=== PATIENT | female | born 1930 | race Caucasian/White ===

== ENCOUNTER 2017-02-19 05:21 | Emergency (ER) | payer MEDICARE ==
[2017-02-19 05:25] VITALS: BP 188/55; PULSE 60; RESP 18; TEMP 98.7; O2SAT 100
--- NOTE | 2017-02-19 05:45 | PD ---
HPI Chief Complaint: Fall Time Seen by Provider: 05:36 Travel History International Travel<30 days: No Contact w/Intl Traveler<30days: No Traveled to known affect area: No History of Present Illness HPI The patient is an 86-year-old female that fell tonight. It is unknown whether she lost consciousness. She did hit her right forehead and she complains of cervical, thoracic and lumbar spine pain. She also states she has pain behind both knees. At times she doesn't remember whether she fell or not. She came from [facility]. She has a history of dementia. Fall was not witnessed by [facility] staff. PFSH Past Medical History ?: Not Social History Tobacco Use: No Allergies-Medications (Allergen,Severity, Reaction): Coded Allergies: Ativan (Verified Allergy, Unknown, 02/19/17) CRESTOR (Verified Allergy, Unknown, 02/19/17) Citalopram (Verified Allergy, Unknown, 02/19/17) Codeine (Verified Allergy, Unknown, 02/19/17) Demerol (Verified Allergy, Unknown, 02/19/17) Duloxetine HCl (Verified Allergy, Unknown, 02/19/17) Estrogens (Verified Allergy, Unknown, 02/19/17) Lipitor (Verified Allergy, Unknown, 02/19/17) Macrobid (Verified Allergy, Unknown, 02/19/17) Oxycodone (Verified Allergy, Unknown, 02/19/17) Propoxyphene (Verified Allergy, Unknown, 02/19/17) Remeron Maral-Tab (Verified Allergy, Unknown, 02/19/17) Sertraline (Verified Allergy, Unknown, 02/19/17) Reported Meds & Prescriptions Reported Meds & Active Scripts Active Reported Synthroid (Levothyroxine Sodium) 88 Mcg Tab 88 Mcg PO DAILY Risperidone 0.5 Mg Tab 0.5 Mg PO DAILY Risperidone 0.25 Mg Tab 0.25 Mg PO HS Omeprazole 20 Mg Tab 20 Mg PO DAILY Losartan (Losartan Potassium) 25 Mg Tab 25 Mg PO DAILY Furosemide 20 Mg Tab 20 Mg PO DAILY Divalproex DR (Divalproex Sodium) 125 Mg Capdr 125 Mg PO DAILY Aspirin 81 (Aspirin) 81 Mg Tabdr 81 Mg PO DAILY Liquitears Opth (Polyvinyl Alcohol) 1.4% Soln Amlodipine (Amlodipine Besylate) 2.5 Mg Tab 2.5 Mg PO DAILY Review of Systems Except as stated in HPI: all other systems reviewed are Neg Physical Exam Narrative GENERAL: The patient is alert but has poor recollection of the event. She appears in slight apparent distress with her C-spine, T-spine and LS-spine pain. Her vital signs show blood pressure 188/55 but are otherwise normal. SKIN: Focused skin assessment warm/dry. HEAD: The right forehead shows a recent contusion without any associated forming of the skull.. Normocephalic. EYES: Pupils equal and round. No scleral icterus. No injection or drainage. ENT: No nasal bleeding or discharge. Mucous membranes pink and moist. NECK: Trachea midline. No JVD. There is diffuse tenderness over the lower neck without any posterior spinous process deformity. Most of the tenderness is over the trapezii and not over the posterior spinous processes. CARDIOVASCULAR: Regular rate and rhythm. No murmur appreciated. RESPIRATORY: No accessory muscle use. Clear to auscultation. Breath sounds equal bilaterally. GASTROINTESTINAL: Abdomen soft, non-tender, nondistended. Hepatic and splenic margins not palpable. MUSCULOSKELETAL: No obvious deformities. No clubbing. No cyanosis. No edema. There is tenderness without deformity to the left of the thoracic spine. No flail is noted. There is tenderness diffusely at the lumbosacral area bilaterally. No deformities noted in this area. NEUROLOGICAL: Awake and alert. No obvious cranial nerve deficits. Motor grossly within normal limits. Normal speech. PSYCHIATRIC: Appropriate mood and affect; insight and judgment normal. Data Data Last Documented VS Vital Signs Date Time Temp Pulse Resp B/P Pulse Ox O2 Delivery O2 Flow Rate FiO2 02/19/17 06:17 63 183/82 99 Room Air 02/19/17 05:34 18 02/19/17 05:[address] Brain W/O Iv Contrast(Rout) (02/19/17 05:36) Ct Cerv Spine W/O Contrast (02/19/17 05:36) Ct Thor Spine W/O Contrast (02/19/17 05:36) Ct Lumb Spine W/O Contrast (02/19/17 05:36) Knee, Ltd (1 Or 2vws) (02/19/17 05:36) Knee, Ltd (1 Or 2vws) (02/19/17 05:36) Code Status (02/19/17 06:07) [facility] Medical Decision Making Medical Screen Exam Complete: Yes Emergency Medical Condition: Yes Medical Record Reviewed: Yes Interpretation(s) The CT of the thoracic spine without contrast shows mild superior endplate compression deformities of T5 and T11 which are probably old. No evidence of spondylolisthesis. The CT of the lumbar spine without contrast shows no evidence of compression deformity or spondylolisthesis. Multilevel discogenic degenerative changes with disc bulging and facet hypertrophy are present and there is diffuse osteopenia. Differential Diagnosis Skull fracture, intracranial bleed, fracture C-spine, fractured T-spine, fracture LS-spine, fracture knees, contusionsmultiple Narrative Course The patient has multiple cervical, lumbar and thoracic strains and a scalp contusion. Diagnosis Primary Impression: Cervical strain, acute Additional Impressions: Thoracic myofascial strain Lumbar strain Hematoma of scalp Chronic dementia Additional Instructions: Follow-up with your primary care physician this week. Med/Other Pt SpecificInfo: No Change to Meds Disposition: 03 DISCHARGE TO SNF Condition: Stable Deon Morgan MD Feb 19, 2017 05:45
[2017-02-19] MEDS ORDERED: POLY120S (05:49)
[2017-02-19] MEDS ORDERED: ASPI-110 PO (05:49)
[2017-02-19] MEDS ORDERED: AMLO2.5T PO (05:49)
[2017-02-19] MEDS ORDERED: DIVA125C2 PO (05:49)
[2017-02-19] MEDS ORDERED: FURO20TA PO (05:52)
[2017-02-19] MEDS ORDERED: OMEP20TA PO (05:52)
[2017-02-19] MEDS ORDERED: LOSA25TA PO (05:52)
[2017-02-19] MEDS ORDERED: SYNT88TA PO (05:52)
[2017-02-19] MEDS ORDERED: RISP0.252 PO (05:52)
[2017-02-19] MEDS ORDERED: RISP0.5T2 PO (05:52)
[2017-02-19 06:17] VITALS: BP 183/82; PULSE 63; O2SAT 99
--- NOTE | 2017-02-19 07:05 | RADRPT ---
EXAM DATE/TIME: 02/19/2017 05:50 [facility] COMPARISON: No previous studies available for comparison. INDICATIONS : Left knee pain post fall. MEDICAL HISTORY : None. SURGICAL HISTORY : None. ENCOUNTER: Initial ACUITY: 1 day PAIN SCORE: 5/10 LOCATION: Left knee FINDINGS: Two view examination of the left knee demonstrates no evidence of fracture or dislocation. Bony mine ralization is normal. The suprapatellar soft tissues have a normal configuration. CONCLUSION: Negative exam. Cory Robertson MD on February 19, 2017 at 7:03 Board Certified Radiologist. This report was verified electronically.
--- NOTE | 2017-02-19 07:06 | RADRPT ---
EXAM DATE/TIME: 02/19/2017 05:50 [facility] COMPARISON: No previous studies available for comparison. INDICATIONS : Right knee pain post fall. MEDICAL HISTORY : None. SURGICAL HISTORY : None. ENCOUNTER: Initial ACUITY: 1 day PAIN SCORE: 7/10 LOCATION: Right knee FINDINGS: Two view examination of the right knee demonstrates no evidence of fracture or dislocation. Bony min eralization is normal. The suprapatellar soft tissues have a normal configuration. CONCLUSION: Negative exam. Cory Robertson MD on February 19, 2017 at 7:03 Board Certified Radiologist. This report was verified electronically.
--- NOTE | 2017-02-19 07:09 | RADRPT ---
EXAM DATE/TIME: 02/19/2017 05:50 [facility] COMPARISON: No previous studies available for comparison. INDICATIONS : Trauma, fall. RADIATION DOSE: 62.64 CTDIvol (mGy) MEDICAL HISTORY : Non-responsive. SURGICAL HISTORY : Non-responsive. ENCOUNTER: Initial ACUITY: 1 day PAIN SCALE: Non-responsive LOCATION: cranial TECHNIQUE: Multiple contiguous axial images were obtained of the head. Using automated exposure control and adj ustment of the mA and/or kV according to patient size, radiation dose was kept as low as reasonably a chievable to obtain optimal diagnostic quality images. DICOM format image data is available electro nically for review and comparison. FINDINGS: CEREBRUM: The ventricles, sulci, and basal cisterns are prominent, characteristic of moderate central and corti gary atrophy.. No evidence of midline shift, mass lesion, hemorrhage or acute infarction. No extra-a xial fluid collections are seen. POSTERIOR FOSSA: The cerebellum and brainstem are intact. The 4th ventricle is midline. The cerebellopontine angle i s unremarkable. EXTRACRANIAL: The visualized portion of the orbits is intact. Opacified left sphenoid sinus. SKULL: Scalp hematoma in the mid convexity right frontoparietal region measuring 8 mm in thickness. The gary varia is intact. No evidence of skull fracture. CONCLUSION: 1. 8mm right frontoparietal scalp hematoma. 2. No acute findings in the brain. Moderate central and cortical atrophy. 3. The left sphenoid sinus is opacified. Cory Robertson MD on February 19, 2017 at 7:06 Board Certified Radiologist. This report was verified electronically.
--- NOTE | 2017-02-19 07:15 | RADRPT ---
EXAM DATE/TIME: 02/19/2017 05:50 [facility] COMPARISON: No previous studies available for comparison. INDICATIONS : Trauma, fall. RADIATION DOSE: 26.33 CTDIvol (mGy) MEDICAL HISTORY : Non-responsive. SURGICAL HISTORY : Non-responsive. ENCOUNTER: Initial ACUITY: 1 day PAIN SCALE: Non-responsive LOCATION: Paraspinal TECHNIQUE: Volumetric scanning of the cervical spine was performed. Multiplanar reconstructions in the sagittal, coronal and oblique axial planes were performed. Using automated exposure control and adjustment o f the mA and/or kV according to patient size, radiation dose was kept as low as reasonably achievable to obtain optimal diagnostic quality images. DICOM format image data is available electronically f or review and comparison. FINDINGS: Diffuse osteopenia. Vertebral body height is maintained. No evidence of spondylolisthesis. Moderat e degenerative changes with narrowing of the interspaces and mild posterior osteophytes. The posteri or elements are normal and without evidence of locked or perched facets. The atlantoaxial articulati on is intact. C2-C3: No fracture seen. The bony neural foramina are patent bilaterally. C3-C4: No fracture seen. The bony neural foramina are patent bilaterally. C4-C5: No fracture seen. Mild bilateral bony neural foraminal narrowing due to left lateral mass and left u ncovertebral joint hypertrophy. C5-C6: No fracture seen. Bilateral bony neural foraminal stenosis, severe on the right and moderate on the left due to facet joint hypertrophy. C6-C7: No fracture seen. Mild bilateral bony neural foraminal stenosis due to facet joint hypertrophy. C7-T1: No fracture seen. The bony neural foramina are patent bilaterally. CONCLUSION: Discogenic and facet joint degenerative changes with multilevel bony neural foraminal stenosis. No e vidence of fracture or spondylolisthesis. Cory Robertson MD on February 19, 2017 at 7:08 Board Certified Radiologist. This report was verified electronically.
--- NOTE | 2017-02-19 07:19 | RADRPT ---
EXAM DATE/TIME: 02/19/2017 05:56 [facility] COMPARISON: No previous studies available for comparison. INDICATIONS : Trauma, fall. RADIATION DOSE: 33.64 CTDIvol (mGy) ; Combined studies - Thoracic Spine/Lumbar Spine MEDICAL HISTORY : Non-responsive. SURGICAL HISTORY : Non-responsive. ENCOUNTER: Initial ACUITY: 1 day PAIN SCALE: Non-responsive LOCATION: Paraspinal TECHNIQUE: Volumetric scanning of the thoracic spine was performed. Multiplanar reconstructions in the sagittal , coronal and oblique axial planes were performed. Using automated exposure control and adjustment o f the mA and/or kV according to patient size, radiation dose was kept as low as reasonably achievable to obtain optimal diagnostic quality images. DICOM format image data is available electronically f or review and comparison. FINDINGS: There is diffuse osteopenia. Vertebral body alignment is maintained. Mild, less than 10% compressio n deformities in the superior endplate of T5 and T11. The bony spinal canal is intact; no ring fract ures seen. Paraspinal soft tissues are normal in thickness. The posterior elements appear grossly i ntact. CONCLUSION: Mild superior endplate compression deformities of T5 and T11, probably old. No evidence of spondylol isthesis.. Cory Robertson MD on February 19, 2017 at 7:15 Board Certified Radiologist. This report was verified electronically.
--- NOTE | 2017-02-19 07:23 | RADRPT ---
EXAM DATE/TIME: 02/19/2017 05:56 [facility] COMPARISON: No previous studies available for comparison. INDICATIONS : Trauma, fall. RADIATION DOSE: 33.64 CTDIvol (mGy) ; Combined studies - Thoracic Spine/Lumbar Spine MEDICAL HISTORY : Non-responsive. SURGICAL HISTORY : Non-responsive. ENCOUNTER: Initial ACUITY: 1 day PAIN SCALE: Non-responsive LOCATION: Paraspinal TECHNIQUE: Volumetric scanning of the lumbar spine was performed. Multiplanar reconstructions in the sagittal, coronal and oblique axial planes were performed. Using automated exposure control and adjustment of the mA and/or kV according to patient size, radiation dose was kept as low as reasonably achievable t o obtain optimal diagnostic quality images. DICOM format image data is available electronically for review and comparison. FINDINGS: Osseous structures are diffusely osteopenic. Vertebral body height is maintained. Moderate discogen ic degenerative changes at the L4-5 level with vacuum phenomenon. Moderate narrowing of the L5-S1 in terspace. T12-L1: The thecal sac has a normal diameter. No evidence of disc bulge or protrusion. The neural foramina are patent bilaterally. L1-L2: The thecal sac has a normal diameter. No evidence of disc bulge or protrusion. The neural foramina are patent bilaterally. L2-L3: Mild broad-based bulging of the disc flattens the ventral margin of the thecal sac. No focal disc pr otrusion. L3-L4: Mild broad-based bulging of the disc without significant deformity of the thecal sac. Mild facet rosy nt hypertrophy L4-L5: Broad-based bulging of the disc flattens the ventral margin of the thecal sac. Asymmetric bulging in to the neural foramen on the right side Facet joint hypertrophy causes narrowing of the bony neural f oramina.L5-S1: Broad-based bulging of the disc flattens the ventral margin thecal sac and extends into the neural fo ramina bilaterally. Moderate severity bilateral renal foraminal stenosis due to facet joint hypertro phy. CONCLUSION: 1. No evidence of compression deformity or spondylolisthesis. 2. Multilevel discogenic degenerative changes with disc bulging and facet hypertrophy. 3. Diffuse osteopenia. Cory Robertson MD on February 19, 2017 at 7:17 Board Certified Radiologist. This report was verified electronically.
== END 2017-02-19 10:35 ==
LOC: PHED 05:21
DX: S16.1XXA Strain of muscle, fascia and tendon at neck level, initial encounter (principal); S29.012A Strain of muscle and tendon of back wall of thorax, initial encounter; S39.012A Strain of muscle, fascia and tendon of lower back, initial encounter; S00.03XA Contusion of scalp, initial encounter; F03.90 Unspecified dementia, unspecified severity, without behavioral disturbance, psychotic disturbance, mood disturbance, and anxiety; Z79.82 Long term (current) use of aspirin
CPT/HCPCS: 70450; 72125; 72128; 72131; 73560; 99285

== ENCOUNTER 2017-02-20 15:12 | Emergency (ER) | payer MEDICARE ==
[~2017-02-20] VITALS: Ht 152.4 cm; Wt 51.0 kg
[~2017-02-20 15:12] MED LIST: AMLO2.5T PO; ASPI-110 PO; DIVA125C2 PO; FURO20TA PO; LOSA25TA PO; OMEP20TA PO; POLY120S; RISP0.252 PO; RISP0.5T2 PO; SYNT88TA PO
[2017-02-20 15:42] VITALS: BP 157/67; PULSE 61; RESP 17; TEMP 98.4; O2SAT 98
[2017-02-20 15:57] VITALS: RESP 17; O2SAT 99
[2017-02-20] MEDS ORDERED: SODIUM CHLORIDE 0.9% FLUSH 5 ML FLUSH IV FLUSH PRN (16:00)
--- NOTE | 2017-02-20 16:02 | PD ---
HPI Chief Complaint: Altered Mental Status Time Seen by Provider: 15:57 Travel History International Travel<30 days: No Contact w/Intl Traveler<30days: No Traveled to known affect area: No History of Present Illness HPI 86-year-old elderly female presents to the emergency department from [facility] for evaluation of altered mental status. Patient does have a history dementia. The patient will answer her name correctly, but answers other questions inappropriately it does not make sense when she speaks. The patient does deny any headache to me. No chest pain or shortness of breath. No abdominal pain. Nausea, vomiting, diarrhea. Patient apparently had a fall yesterday. CT of the brain, cervical spine, thoracic spine, lumbar spine were completed. Bilateral x-rays were completed. No acute finding was noted. PFSH Past Medical History Hx Anticoagulant Therapy: Yes (ASA) Atrial Fibrillation: Yes Anxiety: Yes Cardiovascular Problems: Yes (HBP) High Cholesterol: Yes Cerebrovascular Accident: Yes Dementia: Yes Diminished Hearing: Yes GERD: Yes Glaucoma: Yes Hypertension: Yes Thyroid Disease: Yes (HYPOTHYROIDISM) Menopausal: Yes Social History Alcohol Use: No Tobacco Use: No Substance Use: No Allergies-Medications (Allergen,Severity, Reaction): Coded Allergies: Ativan (Verified Allergy, Unknown, 02/20/17) CRESTOR (Verified Allergy, Unknown, 02/20/17) Citalopram (Verified Allergy, Unknown, 02/20/17) Codeine (Verified Allergy, Unknown, 02/20/17) Demerol (Verified Allergy, Unknown, 02/20/17) Duloxetine HCl (Verified Allergy, Unknown, 02/20/17) Estrogens (Verified Allergy, Unknown, 02/20/17) Lipitor (Verified Allergy, Unknown, 02/20/17) Macrobid (Verified Allergy, Unknown, 02/20/17) Oxycodone (Verified Allergy, Unknown, 02/20/17) Propoxyphene (Verified Allergy, Unknown, 02/20/17) Remeron Maral-Tab (Verified Allergy, Unknown, 02/20/17) Sertraline (Verified Allergy, Unknown, 02/20/17) Reported Meds & Prescriptions Reported Meds & Active Scripts Active Reported Synthroid (Levothyroxine Sodium) 88 Mcg Tab 88 Mcg PO DAILY Risperidone 0.5 Mg Tab 0.5 Mg PO DAILY Risperidone 0.25 Mg Tab 0.25 Mg PO HS Omeprazole 20 Mg Tab 20 Mg PO DAILY Losartan (Losartan Potassium) 25 Mg Tab 25 Mg PO DAILY Furosemide 20 Mg Tab 20 Mg PO DAILY Divalproex DR (Divalproex Sodium) 125 Mg Capdr 125 Mg PO DAILY Aspirin 81 (Aspirin) 81 Mg Tabdr 81 Mg PO DAILY Liquitears Opth (Polyvinyl Alcohol) 1.4% Soln Amlodipine (Amlodipine Besylate) 2.5 Mg Tab 2.5 Mg PO DAILY Review of Systems Except as stated in HPI: all other systems reviewed are Neg Physical Exam Narrative GENERAL: Well-nourished, well-developed elderly female patient, afebrile. Patient is alert. She is oriented to person only. SKIN: Focused skin assessment warm/dry. Patient has ecchymosis noted to right eye orbit. HEAD: Normocephalic. EYES: No scleral icterus. No injection or drainage. NECK: Supple, trachea midline. No JVD or lymphadenopathy. CARDIOVASCULAR: Regular rate and rhythm without murmurs, gallops, or rubs. RESPIRATORY: Breath sounds equal bilaterally. No accessory muscle use. Lungs sounds clear to auscultation. GASTROINTESTINAL: Abdomen soft, non-tender, nondistended. MUSCULOSKELETAL: No cyanosis, or edema. Patient moves all extremities to command BACK: Nontender without obvious deformity. No CVA tenderness. Data Data Last Documented VS Vital Signs Date Time Temp Pulse Resp B/P Pulse Ox O2 Delivery O2 Flow Rate FiO2 02/20/17 17:11 98.0 61 16 161/69 Room Air 02/20/17 15:57 99 Orders Electrocardiogram (02/20/17 ) Ammonia (02/20/17 15:52) Complete Blood Count With Diff (02/20/17 15:52) Comprehensive Metabolic Panel (02/20/17 15:52) Creatine Kinase (Cpk) (02/20/17 15:52) Prothrombin Time / Inr (Pt) (02/20/17 15:52) Act Partial Throm Time (Ptt) (02/20/17 15:52) Troponin I (02/20/17 15:52) Urinalysis - C+S If Indicated (02/20/17 15:52) Chest, Single Ap (02/20/17 15:52) Blood Glucose (02/20/17 15:52) Ecg Monitoring (02/20/17 15:52) Iv Access Insert/Monitor (02/20/17 15:52) Oximetry (02/20/17 15:52) Sodium Chloride 0.9% Flush (Ns Flush) (02/20/17 16:00) Valproic Acid (Depakene) (02/20/17 15:52) Cath For Specimen (02/20/17 15:52) CKMB (02/20/17 16:00) CKMB% (02/20/17 16:00) Sodium Chlorid 0.9% 500 Ml Inj (Ns 500 M (02/20/17 17:30) Labs Laboratory Tests Test 02/20/17 16:00 White Blood Count 5.9 TH/MM3 Red Blood Count 3.84 MIL/MM3 Hemoglobin 11.7 GM/DL Hematocrit 34.9 % Mean Corpuscular Volume 90.7 FL Mean Corpuscular Hemoglobin 30.5 PG Mean Corpuscular Hemoglobin 33.6 % Concent Red Cell Distribution Width 14.0 % Platelet Count 169 TH/MM3 Mean Platelet Volume 9.6 FL Neutrophils (%) (Auto) 67.6 % Lymphocytes (%) (Auto) 15.4 % Monocytes (%) (Auto) 13.8 % Eosinophils (%) (Auto) 2.7 % Basophils (%) (Auto) 0.5 % Neutrophils # (Auto) 4.0 TH/MM3 Lymphocytes # (Auto) 0.9 TH/MM3 Monocytes # (Auto) 0.8 TH/MM3 Eosinophils # (Auto) 0.2 TH/MM3 Basophils # (Auto) 0.0 TH/MM3 CBC Comment DIFF FINAL Differential Comment Prothrombin Time 10.9 SEC Prothromb Time International 1.0 RATIO Ratio Activated Partial 24.3 SEC Thromboplast Time Urine Color YELLOW Urine Turbidity CLEAR Urine pH 6.5 Urine Specific [place] 1.026 Urine Protein TRACE mg/dL Urine Glucose (UA) NEG mg/dL Urine Ketones 10 mg/dL Urine Occult Blood NEG Urine Nitrite NEG Urine Bilirubin SMALL Urine Urobilinogen 4.0 MG/DL Urine Leukocyte Esterase NEG Urine WBC 1 /hpf Urine Hyaline Casts 1 /lpf Urine Mucus FEW /lpf Microscopic Urinalysis Comment CULT NOT INDICATED Sodium Level 138 MEQ/L Potassium Level 3.5 MEQ/L Chloride Level 101 MEQ/L Carbon Dioxide Level 29.5 MEQ/L Anion Gap 8 MEQ/L Blood Urea Nitrogen 19 MG/DL Creatinine 0.86 MG/DL Estimat Glomerular Filtration 62 ML/MIN Rate Random Glucose 88 MG/DL Calcium Level 9.1 MG/DL Total Bilirubin 0.8 MG/DL Aspartate Amino Transf 23 U/L (AST/SGOT) Alanine Aminotransferase 17 U/L (ALT/SGPT) Alkaline Phosphatase 60 U/L Ammonia 11 MCMOL/L Total Creatine Kinase 216 U/L Creatine Kinase MB 2.0 NG/ML Creatine Kinase MB % 0.9 % Troponin I LESS THAN 0.02 NG/ML Total Protein 6.4 GM/DL Albumin 3.4 GM/DL Valproic Acid (Depakene) Level 53 MCG/ML [facility] Medical Decision Making Medical Screen Exam Complete: Yes Emergency Medical Condition: Yes Medical Record Reviewed: Yes Interpretation(s) chest x-ray - CONCLUSION: No acute disease. Differential Diagnosis Electrolyte abnormality versus UTI versus pneumonia versus dehydration versus ACS Narrative Course 86-year-old elderly female presents to the emergency department for altered mental status by the nursing facility that she resides in. EKG shows sinus rhythm, heart rate 62. Patient has minimal ST depression noted in V4 and V5. CBC, CMP, CK, troponin, UA, PTT, PTT/INR ammonia level, Depakote level are ordered and pending. Chest x-ray is ordered and pending. CBC shows no acute abnormality. CMP shows slightly elevated BUN of 19 otherwise , unremarkable. CK is 216. Troponin is less than 0.02. Coags are unremarkable. Ammonia level is 11. Depakote level is 53. Chest x-ray shows no acute disease. Patient is given normal saline 500 mL bolus. My attending physician, Dr. Crawford, examined patient is well. She agrees with plan and disposition. Patient will be discharged back to nursing facility. She is return for any acute worsening of symptoms. Diagnosis Primary Impression: Chronic dementia Qualified Code: F03.90 - Chronic dementia, without behavioral disturbance Referrals: Primary Care Physician call for appointment Patient Instructions: Dementia (ED), General Instructions Additional Instructions: Follow-up with your primary care physician. Return to the emergency department for any acute worsening of symptoms. Med/Other Pt SpecificInfo: No Change to Meds Disposition: 01 DISCHARGE HOME Condition: Stable Eleanro Myers ARISTIDES Feb 20, 2017 16:02
[2017-02-20 16:36] LABS: BASOPHIL % 0.5 % (0.0-2.0); EOSINOPHIL # 0.2 TH/MM3 (0-0.4); EOSINOPHIL % 2.7 % (0.0-4.0); HEMATOCRIT 34.9 % (35.0-46.0); HEMO FLAGS DIFF FINAL; LYMPH % 15.4 % (9.0-44.0); LYMPHOCYTE # 0.9 TH/MM3 (1.0-4.8); MEAN CELL VOLUME 90.7 FL (80.0-100.0); MEAN CORPUSCULAR HEMOGLOBIN 30.5 PG (27.0-34.0); MEAN CORPUSCULAR HGB CONC 33.6 % (32.0-36.0); MONO % 13.8 % (0.0-8.0); NEUT % 67.6 % (16.0-70.0); PLATELET COUNT 169 TH/MM3 (150-450); RED BLOOD COUNT 3.84 MIL/MM3 (4.00-5.30); WHITE BLOOD COUNT 5.9 TH/MM3 (4.0-11.0)
[2017-02-20 16:46] LABS: APTT (PATIENT) 24.3 SEC (24.3-30.1); PROTHROMBIN TIME - PATIENT 10.9 SEC (9.8-11.6)
[2017-02-20 16:47] LABS: BLOOD, URINE NEG (NEG); COMMENT (UR) CULT NOT INDICATED; CULTURE IF INDICATED CULT NOT INDICATED; GLUCOSE,URINE NEG (NEG); HYALINE CAST, URINE 1 /lpf (RARE); KETONE, URINE 10 mg/dL (NEG); MUCUS URINE FEW /lpf (OCC); NITRITE,URINE NEG (NEG); PH, URINE 6.5 (5.0-8.5); URINE COLOR YELLOW (YELLW/STRAW)
[2017-02-20 16:59] LABS: ANION GAP 8 MEQ/L (5-15); AST (GOT) 23 U/L (15-37); BICARBONATE 29.5 MEQ/L (21.0-32.0); BLOOD UREA NITROGEN 19 MG/DL (7-18); CHLORIDE 101 MEQ/L (98-107); GLOMERULAR FILTRATION RATE 62 ML/MIN (>89); POTASSIUM 3.5 MEQ/L (3.5-5.1); SODIUM (NA) 138 MEQ/L (136-145)
[2017-02-20 17:00] LABS: ALT (GPT) 17 U/L (10-53)
[2017-02-20 17:03] LABS: ALKALINE PHOSPHATASE 60 U/L (45-117); CREATINE KINASE 216 U/L (26-192); TOTAL BILIRUBIN ADULT 0.8 MG/DL (0.2-1.0)
--- NOTE | 2017-02-20 17:08 | RADRPT ---
EXAM DATE/TIME: 02/20/2017 16:42 [facility] COMPARISON: No previous studies available for comparison. INDICATIONS : Short of breath. MEDICAL HISTORY : None. SURGICAL HISTORY : None. ENCOUNTER: Initial ACUITY: 1 day PAIN SCORE: 0/10 LOCATION: Bilateral chest FINDINGS: A single view of the chest demonstrates the lungs to be symmetrically aerated without evidence of mas s, infiltrate or effusion. The cardiomediastinal contours are unremarkable. Osseous structures are intact. CONCLUSION: No acute disease. Jeremiah Campbell MD FACR on February 20, 2017 at 17:05 Board Certified Radiologist. This report was verified electronically.
[2017-02-20 17:11] VITALS: BP 161/69; PULSE 61; RESP 16; TEMP 98
[2017-02-20] MEDS ORDERED: SODIUM CHLORID 0.9% 500 ML INJ 500 ML IV ONE (17:30)
--- NOTE | 2017-02-20 17:52 | EKG ---
Date Performed: 02/20/2017 Time Performed: 15:50:25 PTAGE: 86 years EKG: BASELINE ARTIFACT PRESENT. Sinus rhythm WITH OCCASIONAL SUPRAVENTRICULAR PREMATURE COMPLEXES MINIMAL VOLTAGE CRITERIA FOR LVH, CONSIDER NORM AL VARIANT MODERATE ST DEPRESSION ABNORMAL ECG NO PREVIOUS TRACING DOCTOR: Gamaliel Muir Interpretating Date/Time 02/20/2017 17:51:31
[2017-02-20 18:53] VITALS: BP 130/78; TEMP 97.7
== END 2017-02-20 18:53 | disposition home or self-care (01) ==
LOC: NEPE 15:12
DX: R41.82 Altered mental status, unspecified (principal); I48.91 Unspecified atrial fibrillation; F41.9 Anxiety disorder, unspecified; E78.00 Pure hypercholesterolemia, unspecified; I10 Essential (primary) hypertension; E03.9 Hypothyroidism, unspecified; K21.9 Gastro-esophageal reflux disease without esophagitis; Z79.899 Other long term (current) drug therapy; Z86.73 Personal history of transient ischemic attack (TIA), and cerebral infarction without residual deficits
CPT/HCPCS: 71010; 80053; 80164; 81001; 82140; 82550; 82552; 84484; 85025; 85610; 85730; 93005; 96360; 99285; J7040; P9612